=== PATIENT | female | born 1950 | race Caucasian/White ===

== ENCOUNTER 2017-09-01 23:27 | Observation (INO) ==
[2017-09-01 23:51] LABS: Basophils % 0.3 %; Eosinophils # 0.2 K/mcL (0.0-0.6); Eosinophils % 2.7 %; Hematocrit 32.9 % (35.3-44.9); Hemoglobin 10.9 g/dL (11.5-15.4); Immature Granulocytes % 0.1 % (0-4); Lymphocytes # 2.3 K/mcL (0.6-4.6); Lymphocytes % 31.8 %; Mean Corpuscular HGB Conc 33.1 g/dL (31.6-35.5); Mean Corpuscular Hemoglobin 31.5 pg (28.0-33.3); Mean Corpuscular Volume 95.1 fL (83.0-100.0); Mean Platelet Volume 11.7 fL (9.4-12.4); Monocytes # 0.6 K/mcL (0.0-1.3); Monocytes % 8.4 %; Neutrophils # 4.2 K/mcL (1.6-8.9); Platelet Count 189 K/mcL (140-400); Red Blood Count 3.46 M/mcL (3.82-4.97); Red Cell Distribution Width 12.6 % (11.5-14.5); Segmented Neutrophils % 56.7 %
--- NOTE | 2017-09-01 23:55 | Emergency Department Note ---
Disposition Clinical Impression: Chest pain Disposition: Admitted As Inpatient Chest Pain HPI - General Chief Complaint: ED Chest Pain Stated Complaint: back pain and head ache Time Seen by Provider: 09/01/17 23:30 Source: patient Mode of arrival: ambulatory Limitations: no limitations Vital Signs Reviewed: Yes Nursing Notes Reviewed: Yes - History of Present Illness HPI Narrative: Patient went home after leaving the hospital AGAINST MEDICAL ADVICE earlier today started having additional chest pain and upper back pain. She took a nitroglycerin for this and developed a headache so they came to the emergency department for evaluation. She had no shortness of breath nausea vomiting or any other complaints of the chest discomfort that did get better with nitroglycerin. Onset (ago): Just [employer] Duration: intermittent Onset: during rest Pain Location: substernal, left chest Severity: moderate Severity scale (1-10): 7 Quality: aching, heaviness Pain Radiation: LUE Improves with: nitroglycerin Worsens with: nothing Associated symptoms: Denies: nausea, vomiting, diaphoresis, dyspnea - Related Data Home Medications Medication Instructions Recorded Confirmed Atorvastatin [Lipitor] 80 mg PO HS 03/23/15 09/01/17 BuPROPion XL (24 HR) [Wellbutrin 300 mg PO DAILY 03/23/15 09/01/17 Xl] ClonazePAM [Klonopin] 1 mg PO BID 03/23/15 09/01/17 Clopidogrel [Plavix] 75 mg PO DAILY 03/23/15 09/01/17 Lisinopril [Zestril] 40 mg PO DAILY 03/23/15 09/01/17 Loratadine [Claritin] 10 mg PO DAILY 03/23/15 09/01/17 Multivitamin [Multi-Day Vitamins] 1 each PO QAM 03/23/15 09/01/17 Omega3/Dha/Epa/Fish Oil/Vit D3 1 each PO QAM 03/23/15 09/01/17 [Fish Oil + Vitamin D-3 Softgel] Ranitidine HCl [Zantac] 150 mg PO BID 03/23/15 09/01/17 TraZODone 100 mg PO HS 03/23/15 09/01/17 Vilazodone HCl [Viibryd] 40 mg PO HS 03/23/15 09/01/17 Albuterol Sulfate [Albuterol 2 puff IH Q4H PRN 04/13/16 09/01/17 Inhaler] Cholecalciferol (Vitamin D3) 2,000 unit PO DAILY 04/13/16 09/01/17 [Vitamin D3] Levothyroxine [Synthroid] 175 mcg PO DAILY 04/13/16 09/01/17 Nitroglycerin [Nitrostat] 0.4 mg PO Q5M PRN 04/13/16 09/01/17 Potassium Chloride [Klor-Con] 20 meq PO BID 04/13/16 09/01/17 Tiotropium [place] [Spiriva] 1 puff IH DAILY 04/13/16 09/01/17 Glimepiride [Amaryl] 2 mg PO 0800 10/29/16 09/01/17 Metoprolol [Lopressor] 25 mg PO BID 09/01/17 09/01/17 Previous Rx's Medication Instructions Recorded hydrALAZINE [HydrALAZINE] 50 mg PO Q8HR tablet 06/05/15 Isosorbide MONOnitrate (24 HR) 120 mg PO DAILY #30 tab.er.24h 07/27/15 [Imdur] Furosemide [Lasix] 80 mg PO DAILY #60 tablet 09/05/15 Warfarin [Coumadin] 2.5 mg PO 1800 #30 tablet 10/30/16 Allergies Allergy/AdvReac Type Severity Reaction Status Date / Time No Known Allergies Allergy Verified 04/13/16 07:37 All systems ED: reviewed and negative except as stated. Review of Systems: As Per HPI Constitutional: Denies: fever, chills, weakness, weight change Eyes: Denies: eye pain, eye discharge, vision change ENT ED: Denies: ear pain, throat pain, dental pain, hearing loss, epistaxis, congestion, dysphagia Cardiovascular: Reports: as per HPI, chest pain. Denies: palpitations, dyspnea on exertion, edema, syncope Respiratory: Denies: cough, dyspnea, wheezes, hemoptysis, stridor Gastrointestinal: Denies: abdominal pain, nausea, vomiting, diarrhea, constipation, hematemesis, melena, hematochezia Genitourinary: Denies: dysuria, frequency, hematuria, discharge Musculoskeletal: Denies: back pain, neck pain, arthralgia, myalgia Integumentary: Denies: rash, abrasion, lesions Neurological: Denies: headache, weakness, numbness, paresthesias, confusion, abnormal gait, vertigo Psychiatric: Denies: anxiety, depression, suicidal thoughts, homicidal thoughts , auditory hallucinations, visual hallucinations Endocrine: Denies: fatigue Hematological/Lymphatic: Denies: easy bleeding, easy bruising Allergic/Immunologic: Denies: facial swelling, urticaria Chest Pain PMH - Past Medical History Medical history: Reports: atrial fibrillation, COPD, coronary artery disease, CVA, diabetes, hyperlipidemia, hypertension, renal disease, thyroid disease, other Surgical history: Reports: angioplasty/stent, cholecystectomy, other Psychiatric history: Reports: anxiety, depression Prior Cardiac Testing/Procedures: Stenting (Circumflex, March 2014) 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: Reports: bilateral tubal ligation - Social History Smoking Status: Never smoker Alcohol use: Reports: none Drug use: Reports: none Physical Exam - General Limitations: no limitations General appearance: alert - Head Head exam: atraumatic, normocephalic, normal inspection - Eye Eye exam: Present: normal appearance, PERRL, EOMI - ENT ENT exam: normal exam, normal oropharynx, mucous membranes moist - Neck Neck exam: Present: normal inspection, full ROM, trachea midline - Chest Chest inspection: Present: normal inspection, symmetric chest wall rise - Respiratory Respiratory exam: Present: normal lung sounds bilaterally - Cardiovascular Cardiovascular exam: Present: regular rate, normal rhythm, normal heart sounds - Abdominal Exam Abdominal exam: Present: soft, Non-Tender - Extremities Exam Extremities exam: Present: normal inspection - Back Exam Back exam: Present: normal inspection - Neurological Exam Neurological exam: Present: alert, oriented X3 - Psychiatric Psychiatric exam: Present: normal affect, normal mood - Skin Skin exam: Present: warm, dry, intact Course Vital Signs Temperature 98.1 F 09/01/17 23:29 Pulse Rate 70 09/01/17 23:29 Respiratory Rate 20 09/01/17 23:29 Blood Pressure 157/64 09/01/17 23:29 O2 Sat by Pulse Oximetry 96 09/01/17 23:29 Temperature 97.8 F 09/02/17 05:06 Pulse Rate 71 09/02/17 05:06 Respiratory Rate 15 09/02/17 05:06 Blood Pressure 121/68 09/02/17 05:06 O2 Sat by Pulse Oximetry 99 09/02/17 05:06 Oxygen Delivery Oxygen Delivery Room Air Chest Pain - MDM Narrative Medical decision making narrative: Your blood pressure was normal today so upon discharge please follow-up through primary care provider for recheck - Lab Data Lab results reviewed: Yes I reviewed the patient's lab results. Result diagrams: 09/01/17 23:44 09/01/17 23:44 Lab Results 09/01/17 09/01/17 09/01/17 Range/Units 00:10 23:44 23:44 WBC 7.4 (4.3-11.1) K/mcL RBC 3.46 L (3.82-4.97) M/mcL Hgb 10.9 L (11.5-15.4) g/dL Hct 32.9 L (35.3-44.9) % MCV 95.1 (83.0-100.0) fL MCH 31.5 (28.0-33.3) pg MCHC 33.1 (31.6-35.5) g/dL RDW 12.6 (11.5-14.5) % Plt Count 189 (140-400) K/mcL MPV 11.7 (9.4-12.4) fL Immature Gran % 0.1 (0-4) % Seg Neutrophils % 56.7 % Lymphocytes % 31.8 % Monocytes % 8.4 % Eosinophils % 2.7 % Basophils % 0.3 % Neutrophils # 4.2 (1.6-8.9) K/mcL Lymphocytes # 2.3 (0.6-4.6) K/mcL Monocytes # 0.6 (0.0-1.3) K/mcL Eosinophils # 0.2 (0.0-0.6) K/mcL Basophils # 0.0 (0.0-0.2) K/mcL PT 26.4 H (9.4-12.1) Seconds INR 2.4 Sodium 139 (136-145) mEq/L Potassium 3.6 (3.5-5.1) mEq/L Chloride 105 (98-107) mEq/L Carbon Dioxide 27 (23-29) mEq/L BUN 25 H (8-23) mg/dL Creatinine 1.81 H (0.60-1.20) mg/dL Est GFR ( Amer) 34 L (> 60) Est GFR (Non-Af Amer) 28 L (> 60) BUN/Creatinine Ratio 14 (6-26) Glucose 235 H (70-105) mg/dL Calculated Osmolality 300 (280-300) Calcium 8.6 (8.6-10.3) mg/dL Troponin I (< 0.04) ng/mL 09/01/17 Range/Units Unknown WBC (4.3-11.1) K/mcL RBC (3.82-4.97) M/mcL Hgb (11.5-15.4) g/dL Hct (35.3-44.9) % MCV (83.0-100.0) fL MCH (28.0-33.3) pg MCHC (31.6-35.5) g/dL RDW (11.5-14.5) % Plt Count (140-400) K/mcL MPV (9.4-12.4) fL Immature Gran % (0-4) % Seg Neutrophils % % Lymphocytes % % Monocytes % % Eosinophils % % Basophils % % Neutrophils # (1.6-8.9) K/mcL Lymphocytes # (0.6-4.6) K/mcL Monocytes # (0.0-1.3) K/mcL Eosinophils # (0.0-0.6) K/mcL Basophils # (0.0-0.2) K/mcL PT (9.4-12.1) Seconds INR Sodium (136-145) mEq/L Potassium (3.5-5.1) mEq/L Chloride (98-107) mEq/L Carbon Dioxide (23-29) mEq/L BUN (8-23) mg/dL Creatinine (0.60-1.20) mg/dL Est GFR ( Amer) (> 60) Est GFR (Non-Af Amer) (> 60) BUN/Creatinine Ratio (6-26) Glucose (70-105) mg/dL Calculated Osmolality (280-300) Calcium (8.6-10.3) mg/dL Troponin I < 0.03 (< 0.04) ng/mL - Radiology Data Radiology results reviewed: Yes I reviewed the patient's radiology results. - EKG Data EKG attestation: Yes I reviewed and interpreted this EKG. EKG results narrative: EKG shows sinus rhythm without acute ST or T-wave changes with a normal rate of 67 bpm KS interval 164 ms. QRS duration 102 ms. QT interval 412 QTC 428 ms R axis of 58 degrees. EKG shows normal: axis
[2017-09-02 00:09] LABS: Calcium 8.6 mg/dL (8.6-10.3); Potassium 3.6 mEq/L (3.5-5.1)
[2017-09-02 00:29] LABS: INR 2.4; Prothrombin Time 26.4 Seconds (9.4-12.1)
[2017-09-02] MEDS ORDERED: Nitroglycerin 1 INCH/GM PACKET TP STA (00:53)
[2017-09-02] MEDS ORDERED: Naloxone 0.4 MG/ML INJ IVP PRN (01:29)
[2017-09-02] MEDS ORDERED: Nitroglycerin 1 INCH/GM PACKET TP ONE (01:29)
[2017-09-02] MEDS ORDERED: 0.9 % Sodium Chloride 1,000 ML IVC SCH (01:29)
[2017-09-02] MEDS: hydrALAZINE 25 MG TABLET PO SCH ×3 (06:16→20:09)
[2017-09-02] MEDS ORDERED: Tiotropium 18 MCG inhalation IH SCH (09:00)
[2017-09-02] MEDS: BuPROPion XL (24 HR) 150 MG TABLET PO SCH (09:52)
[2017-09-02] MEDS: Isosorbide MONOnitrate (24 HR) 60 MG TAB.ER.24H PO SCH (09:53)
[2017-09-02] MEDS: Furosemide 40 MG TABLET PO SCH (09:53)
[2017-09-02] MEDS: clonazePAM 0.5 MG TABLET PO SCH ×2 (09:53→20:04)
[2017-09-02] MEDS: *HR* Glimepiride 2 MG TABLET PO SCH (09:53)
[2017-09-02] MEDS: Famotidine 20 MG TABLET PO SCH ×2 (09:53→16:42)
[2017-09-02] MEDS: Lisinopril 20 MG TABLET PO SCH (09:53)
--- NOTE | 2017-09-02 14:09 | Internal Med History&Physical ---
Date of Encounter: 09/02/17 Time of Encounter: 12:15 Assessment and Plan (1) Chest pain Current visit: Yes Status: Acute Repeat cardiac enzymes were ordered through emergency room. Qualifiers: Chest pain type: precordial pain Qualified Code(s): R07.2 - Precordial pain (2) Anemia Current visit: Yes Status: Acute Will order anemia testing in a.m. Qualifiers: Anemia type: unspecified type Qualified Code(s): D64.9 - Anemia, unspecified (3) Diabetes mellitus Current visit: No Status: Chronic Appears diet-controlled. Hemoglobin A1c was 5.9% on 01/15/2017. Qualifiers: Diabetes mellitus type: type 2 Diabetes mellitus intermediate insulin use: with intermediate use Diabetes mellitus complication status: with unspecified complications Qualified Code(s): E11.8 - Type 2 diabetes mellitus with unspecified complications; Z79.4 - [facility] (current) use of insulin (4) Hypertension Current visit: Yes Status: Acute Continue lisinopril, hydralazine, and metoprolol. Qualifiers: Hypertension type: essential hypertension Qualified Code(s): I10 - Essential (primary) hypertension (5) PAF (paroxysmal atrial fibrillation) Current visit: No Status: Chronic Continue Coumadin. Internal Medicine - H&P: HPI Chief complaint: Chest pain Admitted From: Emergency Dept Plans for Post Hospital Care: Home History of present illness: Ms. Win is a 66 year old female who came to emergency room a second time the day of admission complaining of discomfort in her chest. She reports the discomfort started approximately 5 PM while at leisure. She took a nitroglycerin pill without significant relief. She came to emergency room but did not wish to stay and left AMA. The pain returned again at home. She used an additional nitroglycerin pill and came back to emergency room. She reports she was given 3 nitroglycerin pills in emergency room with resolution of the pain. She was [facility] floor for ongoing care needs. She states her pain has remained resolved at this time. She reports previous similar pain approximately 2 weeks ago. Her cardiovascular history is significant for hypertension and known ASHD status post NSTEMI March 2014 followed by angioplasty and stent in the circumflex artery. She uses a rare nitroglycerin pill for angina. She reports dyspnea on exertion. She denies DVT or pulmonary embolus or heart failure. She had pharmacologic exercise stress test May 2015 which did not show evidence of ischemia. Her LVEF was greater than 70%. An echocardiogram 04/13/2016 showed LVEF of 65-70%. The interventricular septum and posterior wall thickness measurements were elevated 1.50 cm each. There was LAE at 4.50 cm. There was mild aortic sclerosis and elevated RVSP estimated at 50 mmHg. There was mild LV diastolic dysfunction. She had a pacemaker placed October 2016 for sick sinus syndrome. She has paroxysmal atrial fibrillation. Past Med Surg Social Fam HX - Past Medical History Medical history: atrial fibrillation, COPD, coronary artery disease, CVA, diabetes, hyperlipidemia, hypertension, renal disease, thyroid disease, other Additional medical history: DEPRESSION, KIDNEY PROBLEMS, FIBROIDS Psychiatric history: anxiety, depression - Past Surgical History Surgical History: angioplasty/stent, cholecystectomy, other Additional surgical history: TUBAL LIGATION, - Social History Smoking Status: Never smoker Smokeless Tobacco Status: No Alcohol use: none Drug use: none - Family History Brother Family Member Ethnicity: Non- Hx Family Endocrine Disorder: Yes (DM) Father Living Status: Hx Family Respiratory Disorders: Yes (Emphysema) Mother Living Status: Hx Family Cardiac Disorders: No Hx Family Respiratory Disorders: No Hx Family Cancer: No Internal Medicine - H&P: Meds Atorvastatin [Lipitor] 80 mg PO HS 03/23/15 [History] BuPROPion XL (24 HR) [Wellbutrin Xl] 300 mg PO DAILY 03/23/15 [History] ClonazePAM [Klonopin] 1 mg PO BID 03/23/15 [History] Clopidogrel [Plavix] 75 mg PO DAILY 03/23/15 [History] Lisinopril [Zestril] 40 mg PO DAILY 03/23/15 [History] Loratadine [Claritin] 10 mg PO DAILY 03/23/15 [History] Multivitamin [Multi-Day Vitamins] 1 each PO QAM 03/23/15 [History] Omega3/Dha/Epa/Fish Oil/Vit D3 [Fish Oil + Vitamin D-3 Softgel] 1 each PO QAM [History] Ranitidine HCl [Zantac] 150 mg PO BID 03/23/15 [History] TraZODone 100 mg PO HS 03/23/15 [History] Vilazodone HCl [Viibryd] 40 mg PO HS 03/23/15 [History] hydrALAZINE [HydrALAZINE] 50 mg PO Q8HR tablet 06/05/15 [Rx] Isosorbide MONOnitrate (24 HR) [Imdur] 120 mg PO DAILY #30 tab.er.24h 07/27/15 [ Rx] Furosemide [Lasix] 80 mg PO DAILY #60 tablet 09/05/15 [Rx] Albuterol Sulfate [Albuterol Inhaler] 2 puff IH Q4H PRN 04/13/16 [History] Cholecalciferol (Vitamin D3) [Vitamin D3] 2,000 unit PO DAILY 04/13/16 [History] Levothyroxine [Synthroid] 175 mcg PO DAILY 04/13/16 [History] Nitroglycerin [Nitrostat] 0.4 mg PO Q5M PRN 04/13/16 [History] Potassium Chloride [Klor-Con] 20 meq PO BID 04/13/16 [History] Tiotropium [place] [Spiriva] 1 puff IH DAILY 04/13/16 [History] Glimepiride [Amaryl] 2 mg PO 0800 10/29/16 [History] Warfarin [Coumadin] 2.5 mg PO 1800 #30 tablet 10/30/16 [Rx] Metoprolol [Lopressor] 25 mg PO BID 09/01/17 [History] 3 Allergy/AdvReac Type Severity Reaction Status Date / Time No Known Allergies Allergy Verified 04/13/16 07:37 All Systems PM: A 10-system review of systems was performed and is negative for pertinent findings except as documented above in the HPI. Review of systems: Gen.: Her weight has been stable since the July 2014 [facility] hospitalization with weight 133.81 kg on admission then and 137.438 kg now. Cardiovascular: As per history of present illness Respiratory: She is a lifelong nonsmoker. She had pulmonary function tests at [facility] 08/22/2015. She had normal FEV1/FVC ratio at 77%. Her FVC was significantly decreased at 54% however. Her total lung capacity was normal. There was elevated residual volume [156% ] and decrease in DLCO [62% corrected] . GI: She denies disorders with her liver or exocrine pancreas. He has had cholecystectomy : She has CKD stage III and follows with a [place] mineral technologist. She denies other kidney or bladder disorders Neurologic: She had acute hemorrhagic infarct in the left posterior MCA territory involving the left parietal and posterior temporal lobes as well as a small acute infarct in the left insular cortex with surrounding mass effect and edema in April 2016. She was transferred from [facility] to [facility] and was treated nonoperatively. She denies seizures. She uses a walker for ambulation at home. Endocrine: She was diagnosed with DM 2 in 2003. She has hyperlipidemia and hypothyroidism Hematology/oncology: She denies blood disorders cancers or anemia Psychiatric: She has anxiety and states she has another mental health diagnosis but is uncertain what it is. Musculoskeletal: She has DJD but no known gout or osteoporosis - Constitutional Vitals: Temp Pulse Resp BP Pulse Ox 98 F 100 17 141/67 100 09/02/17 10:09/02/17 10:09/02/17 10:09/02/17 10:09/02/17 09:37 Exam: Gen.: She is a well-developed obese female lying in bed who appears in no acute distress. She denies pain at the present time. HEENT: Head is atraumatic and normocephalic. Eyes: EOMI. There is no scleral icterus. Mouth: Mucosa is moist. Neck: Supple and nontender. There is no thyromegaly or adenopathy noted. Heart: Regular without murmurs gallops or ectopics Lungs: No wheezes or crackles are heard. Abdomen: She has a large abdomen. It is nontender to palpation. Chest: She is tender in her chest wall to sternal compression stating "that is the pain". Extremities: There is no cyanosis edema or clubbing noted. Dorsalis pedis posterior tibial pulses are trace to 1+ palpable bilaterally. Neurologic: Mental status: She is talkative and seems to be a reliable historian. Her speech is slightly slow. Cranial nerves: Smile is symmetric. Forehead wrinkles bilaterally. Tongue protrudes midline. EOMI. Motor: There is no pronator drift. Cerebellar: Finger to nose is intact bilaterally. Skin: Warm and dry Internal Med - H&P Results - Labs CBC & Chem 7: 09/01/17 23:44 09/01/17 23:44 Labs: Cardiac Enzymes 09/02/17 Range/Units 07:13 Troponin I < 0.03 (< 0.04) ng/mL - Impressions ITS Impressions Head CT 09/02/17 23:37 IMPRESSION: No acute intracranial abnormality. Remote left frontal lobe infarct. D/ / 09/02/2017 07:12:16 Jesse Jackson MD / trae Interpreting Provider: Jesse Jackson MD
[2017-09-02] MEDS ORDERED: *HR* Warfarin 5 MG TABLET PO SCH (18:00)
[2017-09-02] MEDS ORDERED: Vilazodone Hcl [Viibryd] 40 MG PO SCH (21:00)
[2017-09-02] MEDS ORDERED: traZODone 50 MG TABLET PO SCH (21:00)
[2017-09-03] MEDS: hydrALAZINE 25 MG TABLET PO SCH (06:24)
[2017-09-03] MEDS: Famotidine 20 MG TABLET PO SCH (06:24)
[2017-09-03 07:06] VITALS: BP 157/70
[2017-09-03 08:12] LABS: Prothrombin Time 25.4 Seconds (9.4-12.1)
[2017-09-03 08:49] LABS: INR 2.3
[2017-09-03] MEDS: Lisinopril 20 MG TABLET PO SCH (09:06)
[2017-09-03] MEDS: Furosemide 40 MG TABLET PO SCH (09:06)
[2017-09-03] MEDS: BuPROPion XL (24 HR) 150 MG TABLET PO SCH (09:07)
[2017-09-03] MEDS: Isosorbide MONOnitrate (24 HR) 60 MG TAB.ER.24H PO SCH (09:07)
[2017-09-03] MEDS: *HR* Glimepiride 2 MG TABLET PO SCH (09:07)
[2017-09-03] MEDS: clonazePAM 0.5 MG TABLET PO SCH (09:07)
[2017-09-03] MEDS ORDERED: Tiotropium 18 MCG inhalation IH SCH (10:00)
--- NOTE | 2017-09-03 10:11 | Discharge Summary ---
Date of Encounter: 09/03/17 Time of Encounter: 10:04 - Discharge Diagnosis (1) Chest pain Priority: Primary Status: Resolved Qualifiers: Chest pain type: precordial pain Qualified Code(s): R07.2 - Precordial pain (2) Anemia Priority: Secondary Status: Acute Qualifiers: Anemia type: unspecified type Qualified Code(s): D64.9 - Anemia, unspecified (3) Diabetes mellitus Priority: Secondary Status: Chronic Qualifiers: Diabetes mellitus type: type 2 Diabetes mellitus oysterman insulin use: with intermediate use Diabetes mellitus complication status: with unspecified complications Qualified Code(s): E11.8 - Type 2 diabetes mellitus with unspecified complications; Z79.4 - oysterman (current) use of insulin (4) Hypertension Priority: Secondary Status: Chronic Qualifiers: Hypertension type: essential hypertension Qualified Code(s): I10 - Essential (primary) hypertension (5) PAF (paroxysmal atrial fibrillation) Priority: Secondary Status: Chronic Hospital course: Ms. Win is a 66 year old female who came to emergency room a second time the day of admission complaining of discomfort in her chest. She reports the discomfort started approximately 5 PM while at leisure. She took a nitroglycerin pill without significant relief. She came to emergency room but did not wish to stay and left AMA. The pain returned again at home. She used an additional nitroglycerin pill and came back to emergency room. She reports she was given 3 nitroglycerin pills in emergency room with resolution of the pain. She was admitted to [facility] for ongoing care needs. Initial orders were written by the emergency room physician. I saw her on September 02 and performed a history and physical. Repeat cardiac enzymes showed no evidence of myocardial damage. The etiology was not determined with certainty but I felt she possibly had chest wall origin since the pain was somewhat reproduced by sternal compression. When I saw her on September 03 she was pain-free and wished to be discharged which I felt was reasonable. She will follow with her PCP Dr. Jacob Haq within 1 week. - Time Spent with Patient Total time spent providing and/or coordinating discharge services: - Discharge Medications Home Medications: Atorvastatin [Lipitor] 80 mg PO HS 03/23/15 [History] BuPROPion XL (24 HR) [Wellbutrin Xl] 300 mg PO DAILY 03/23/15 [History] ClonazePAM [Klonopin] 1 mg PO BID 03/23/15 [History] Clopidogrel [Plavix] 75 mg PO DAILY 03/23/15 [History] Lisinopril [Zestril] 40 mg PO DAILY 03/23/15 [History] Loratadine [Claritin] 10 mg PO DAILY 03/23/15 [History] Multivitamin [Multi-Day Vitamins] 1 each PO QAM 03/23/15 [History] Omega3/Dha/Epa/Fish Oil/Vit D3 [Fish Oil + Vitamin D-3 Softgel] 1 each PO QAM [History] Ranitidine HCl [Zantac] 150 mg PO BID 03/23/15 [History] TraZODone 100 mg PO HS 03/23/15 [History] Vilazodone HCl [Viibryd] 40 mg PO HS 03/23/15 [History] hydrALAZINE [HydrALAZINE] 50 mg PO Q8HR tablet 06/05/15 [Rx] Isosorbide MONOnitrate (24 HR) [Imdur] 120 mg PO DAILY #30 tab.er.24h 07/27/15 [ Rx] Furosemide [Lasix] 80 mg PO DAILY #60 tablet 09/05/15 [Rx] Albuterol Sulfate [Albuterol Inhaler] 2 puff IH Q4H PRN 04/13/16 [History] Cholecalciferol (Vitamin D3) [Vitamin D3] 2,000 unit PO DAILY 04/13/16 [History] Levothyroxine [Synthroid] 175 mcg PO DAILY 04/13/16 [History] Nitroglycerin [Nitrostat] 0.4 mg PO Q5M PRN 04/13/16 [History] Potassium Chloride [Klor-Con] 20 meq PO BID 04/13/16 [History] Tiotropium [place] [Spiriva] 1 puff IH DAILY 04/13/16 [History] Glimepiride [Amaryl] 2 mg PO 0800 10/29/16 [History] Warfarin [Coumadin] 2.5 mg PO 1800 #30 tablet 10/30/16 [Rx] Metoprolol [Lopressor] 25 mg PO BID 09/01/17 [History] Allergies/Adverse Reactions: 3 Allergy/AdvReac Type Severity Reaction Status Date / Time No Known Allergies Allergy Verified 04/13/16 07:37 Date of admission: 09/02/17 01:21 Primary care physician: Jacob Haq MD - Constitutional Vitals: Temp Pulse Resp BP Pulse Ox 97.9 F 61 12 157/70 98 09/03/17 07:04 09/03/17 07:04 09/03/17 09:12 09/03/17 07:04 09/03/17 09:12 - Patient Status Disposition: Home, Self-Care Overall status at discharge: patient is progressing back to baseline - Discharge Instructions Follow Up With: Jacob Haq MD [Primary Care Provider] - 1 week - Diet and Activity Activity: resume usual activities as tolerated Diet: advance to your usual diet
--- NOTE | 2017-09-05 10:45 | Electrocardiograph Report ---
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
== END 2017-09-03 11:54 | disposition home or self-care (01) ==
LOC: EMEROOPIK 23:27 → INPPIK 23:27
PROVIDERS: ADMIT Internal Medicine; ATTEND Internal Medicine

== ENCOUNTER 2021-10-09 06:00 | Inpatient (IN) ==
[2021-10-09 07:04] LABS: Bilirubin,Urine Negative (Negative); Blood,Urine Negative (Negative); Clarity,Urine Slightly Cloudy (Clear); Color,Urine Yellow (Yellow); Glucose,Urine (UA) Normal (Normal); Ketones,Urine Negative (Negative); Leukocyte Esterase,Urine Small (Negative); Nitrite,Urine Positive (Negative); PH,Urine 5.5 pH Units (5.0-8.0); Protein,Urine 30 mg/dL (Neg-Trace); Specific Gravity,Urine 1.025 (1.010-1.025); Urobilinogen,Urine Normal (Normal)
[2021-10-09] MEDS ORDERED: Doxycycline 100 MG in 0.9 % Sodium Chloride Mini Bag 100 ML IVPB ONE (07:04)
[2021-10-09] MEDS ORDERED: cefTRIAXone 1,000 MG in 0.9 % Sodium Chloride Mini Bag 100 ML IVPB ONE (07:04)
[2021-10-09 07:22] LABS: Basophils % 0.2 %; Eosinophils # 0.3 K/mcL (0.0-0.6); Eosinophils % 5.9 %; Hematocrit 28.7 % (35.3-44.9); Hemoglobin 8.4 g/dL (11.5-15.4); Immature Granulocytes % 0.4 % (0-4); Lymphocytes # 1.2 K/mcL (0.6-4.6); Lymphocytes % 23.3 %; Mean Corpuscular HGB Conc 29.3 g/dL (31.6-35.5); Mean Corpuscular Hemoglobin 26.1 pg (28.0-33.3); Mean Corpuscular Volume 89.1 fL (83.0-100.0); Mean Platelet Volume 10.2 fL (9.4-12.4); Monocytes # 0.6 K/mcL (0.0-1.3); Monocytes % 10.8 %; Neutrophils # 3.1 K/mcL (1.6-8.9); Platelet Count 203 K/mcL (140-400); Red Blood Count 3.22 M/mcL (3.82-4.97); Red Cell Distribution Width 16.9 % (11.5-14.5); Segmented Neutrophils % 59.4 %; White Blood Count 5.3 K/mcL (4.3-11.1)
[2021-10-09 07:27] LABS: INR 2.3; Prothrombin Time 25.6 Seconds (9.4-12.1)
[2021-10-09 07:29] LABS: Activated Partial Thrombo Time 38.9 Seconds (26.0-36.0)
[2021-10-09 07:33] LABS: Bacteria,Urine Many per hpf (None-Few); Squamous Epithelial Cell,Urine Few per hpf (None-Few); WBC,Urine 30-50 per hpf (0-3)
[2021-10-09 07:35] LABS: Alanine Aminotransferase 7 Units/L (7-52); Albumin 3.2 g/dL (3.5-5.7); Albumin/Globulin Ratio 0.8 (1.1-2.2); Alkaline Phosphatase 88 Units/L (34-104); BUN/Creatinine Ratio 6 (6-26); Bilirubin,Direct 0.1 mg/dL (0.0-0.2); Bilirubin,Indirect 0.3 mg/dL (0.0-1.0); Bilirubin,Total 0.4 mg/dL (0.3-1.0); Blood Urea Nitrogen 11 mg/dL (8-23); Calcium 8.9 mg/dL (8.6-10.3); Carbon Dioxide 31 mEq/L (23-29); Chloride 105 mEq/L (98-107); Globulin 3.9 g/dL (2.4-3.5); Glucose 177 mg/dL (70-105); Osmolality,Calculated 298 (280-300); Potassium 3.9 mEq/L (3.5-5.1); Sodium 142 mEq/L (136-145); Total Protein 7.1 g/dL (6.4-8.9); eGFR For African Americans 36 (> 60); eGFR For Non-African Americans 29 (> 60)
[2021-10-09 07:37] LABS: Troponin I < 0.03 ng/mL (< 0.04)
[2021-10-09] MEDS ORDERED: Ondansetron 4 MG/2 ML VIAL IVP PRN (08:24)
[2021-10-09] MEDS ORDERED: Naloxone 0.4 MG/ML INJ IVP PRN (08:24)
[2021-10-09] MEDS ORDERED: Acetaminophen 325 MG TABLET PO PRN (08:24)
[2021-10-09 08:34] LABS: Aspartate Amino Transferase 10 Units/L (13-39)
[2021-10-09] MEDS ORDERED: POTASSIUM CHLORIDE 20 MEQ PO SCH (11:15)
[2021-10-09] MEDS ORDERED: clonazePAM 0.5 MG TABLET PO PRN (11:29)
[2021-10-09] MEDS: BuPROPion XL (24 HR) 150 MG TABLET PO SCH (12:12)
[2021-10-09] MEDS: lisinopriL 20 MG TABLET PO SCH (12:13)
[2021-10-09] MEDS: Isosorbide MONOnitrate (24 HR) 60 MG TAB.ER.24H PO SCH (12:13)
[2021-10-09] MEDS: Loratadine 10 MG TABLET PO SCH (12:13)
[2021-10-09] MEDS: Cholecalciferol (D-3) 1,000 UNIT (25MCG) TABLET PO SCH (12:13)
[2021-10-09] MEDS: carvediloL 25 MG TABLET PO SCH ×2 (12:14→17:05)
[2021-10-09] MEDS: Famotidine 20 MG TABLET PO SCH ×2 (12:14→21:52)
[2021-10-09] MEDS ORDERED: *HR* Dextrose 50 % in Water (Syg) 50 ML SYRINGE IVP PRN (14:10)
[2021-10-09] MEDS ORDERED: Dextrose Gel 15 GM/37.5 ML TUBE PO PRN ×2 (14:10)
[2021-10-09] MEDS ORDERED: D5% in Water 1,000 ML IVC PRN (14:10)
[2021-10-09] MEDS ORDERED: Perflutren Lipid Microsphere 1.3 ML in 0.9 % Sodium Chloride 8.7 ML IVP PRN (14:22)
[2021-10-09] MEDS: Ipratropium/Albuterol Neb 3 ML IH SCH ×2 (15:08→19:47)
[2021-10-09 16:31] LABS: Estimated Average Glucose 143 mg/dl; Hemoglobin A1C 6.6 %
[2021-10-09] MEDS: Furosemide 40 MG/4 ML VIAL IVP SCH (17:04)
[2021-10-09] MEDS: Insulin LISPRO 300 UNITS/3 ML VIAL SUBQ SCH ×2 (17:05→21:52)
[2021-10-09] MEDS: Doxycycline 100 MG in 0.9 % Sodium Chloride Mini Bag 100 ML IVPB SCH (17:45)
[2021-10-09] MEDS ORDERED: *HR* Warfarin 2 MG TABLET PO ONE (18:00)
[2021-10-09] MEDS ORDERED: Warfarin perPT PO PRN (18:00)
[2021-10-09] MEDS: Budesonide/Formoterol 160/4.5 1 PUFF INH IH SCH (19:47)
[2021-10-09] MEDS: Insulin DETEMIR 100 UNIT/ML X5UNITS SUBQ SCH (21:52)
[2021-10-09] MEDS: traZODone 50 MG TABLET PO SCH (21:52)
[2021-10-09] MEDS: (Vilazodone Hcl [Viibryd] 40 MG Tablet) PO SCH (21:53)
[2021-10-10] MEDS: Ipratropium/Albuterol Neb 3 ML IH SCH ×6 (00:19→19:53)
[2021-10-10] MEDS: Doxycycline 100 MG in 0.9 % Sodium Chloride Mini Bag 100 ML IVPB SCH ×2 (05:18→18:18)
[2021-10-10 06:55] LABS: Basophils % 0.3 %; Eosinophils # 0.4 K/mcL (0.0-0.6); Eosinophils % 5.8 %; Hematocrit 27.8 % (35.3-44.9); Hemoglobin 8.1 g/dL (11.5-15.4); Immature Granulocytes % 0.3 % (0-4); Lymphocytes # 1.2 K/mcL (0.6-4.6); Lymphocytes % 18.7 %; Mean Corpuscular HGB Conc 29.1 g/dL (31.6-35.5); Mean Corpuscular Hemoglobin 26.1 pg (28.0-33.3); Mean Corpuscular Volume 89.7 fL (83.0-100.0); Mean Platelet Volume 10.7 fL (9.4-12.4); Monocytes # 0.7 K/mcL (0.0-1.3); Monocytes % 10.7 %; Platelet Count 231 K/mcL (140-400); Red Cell Distribution Width 16.9 % (11.5-14.5); Segmented Neutrophils % 64.2 %; White Blood Count 6.3 K/mcL (4.3-11.1)
[2021-10-10 07:04] LABS: INR 2.6
[2021-10-10 07:10] LABS: Calcium 8.9 mg/dL (8.6-10.3); Magnesium 1.7 mg/dL (1.6-2.6); Potassium 3.9 mEq/L (3.5-5.1)
[2021-10-10] MEDS: Budesonide/Formoterol 160/4.5 1 PUFF INH IH SCH ×2 (07:41→19:54)
[2021-10-10] MEDS: Insulin LISPRO 300 UNITS/3 ML VIAL SUBQ SCH ×4 (07:45→21:35)
[2021-10-10] MEDS: carvediloL 25 MG TABLET PO SCH ×2 (08:46→18:15)
[2021-10-10] MEDS: Isosorbide MONOnitrate (24 HR) 60 MG TAB.ER.24H PO SCH (08:46)
[2021-10-10] MEDS: BuPROPion XL (24 HR) 150 MG TABLET PO SCH (08:46)
[2021-10-10] MEDS: Loratadine 10 MG TABLET PO SCH (08:47)
[2021-10-10] MEDS: lisinopriL 20 MG TABLET PO SCH (08:47)
[2021-10-10] MEDS: cefTRIAXone 1,000 MG in 0.9 % Sodium Chloride 10 ML IVP SCH (08:47)
[2021-10-10] MEDS: Famotidine 20 MG TABLET PO SCH ×2 (08:47→21:34)
[2021-10-10] MEDS: Cholecalciferol (D-3) 1,000 UNIT (25MCG) TABLET PO SCH (08:47)
[2021-10-10] MEDS: Multivit/Ca/Min/Fe/FA 1 TAB TABLET PO SCH (08:47)
[2021-10-10] MEDS: VIT D3 PO SCH (08:48)
[2021-10-10] MEDS: Insulin DETEMIR 100 UNIT/ML X5UNITS SUBQ SCH ×2 (08:48→21:34)
[2021-10-10] MEDS: EPA PO SCH (08:48)
[2021-10-10] MEDS: OMEGA3 PO SCH (08:48)
[2021-10-10] MEDS: DHA PO SCH (08:48)
[2021-10-10] MEDS: FISH OIL PO SCH (08:48)
[2021-10-10] MEDS: Furosemide 40 MG/4 ML VIAL IVP SCH ×2 (09:11→18:16)
[2021-10-10] MEDS ORDERED: Tiotropium 10 INH DOSE IH SCH (10:00)
[2021-10-10] MEDS ORDERED: *HR* Warfarin 1 MG TABLET PO ONE (18:00)
[2021-10-10] MEDS: traZODone 50 MG TABLET PO SCH (21:34)
[2021-10-10] MEDS: (Vilazodone Hcl [Viibryd] 40 MG Tablet) PO SCH (21:35)
[2021-10-11] MEDS: Ipratropium/Albuterol Neb 3 ML IH SCH ×3 (00:32→08:44)
[2021-10-11] MEDS: Doxycycline 100 MG in 0.9 % Sodium Chloride Mini Bag 100 ML IVPB SCH ×2 (05:35→17:35)
[2021-10-11] MEDS: Budesonide/Formoterol 160/4.5 1 PUFF INH IH SCH ×2 (08:44→21:26)
[2021-10-11] MEDS: cefTRIAXone 1,000 MG in 0.9 % Sodium Chloride 10 ML IVP SCH (08:48)
[2021-10-11] MEDS: BuPROPion XL (24 HR) 150 MG TABLET PO SCH (08:49)
[2021-10-11] MEDS: Multivit/Ca/Min/Fe/FA 1 TAB TABLET PO SCH (08:49)
[2021-10-11] MEDS: carvediloL 25 MG TABLET PO SCH ×2 (08:49→17:34)
[2021-10-11] MEDS: Furosemide 40 MG/4 ML VIAL IVP SCH (08:49)
[2021-10-11 08:50] LABS: INR 2.5; Prothrombin Time 28.1 Seconds (9.4-12.1)
[2021-10-11] MEDS: Loratadine 10 MG TABLET PO SCH (08:50)
[2021-10-11] MEDS: Famotidine 20 MG TABLET PO SCH ×2 (08:50→21:00)
[2021-10-11] MEDS: Isosorbide MONOnitrate (24 HR) 60 MG TAB.ER.24H PO SCH (08:50)
[2021-10-11] MEDS: Cholecalciferol (D-3) 1,000 UNIT (25MCG) TABLET PO SCH (08:50)
[2021-10-11] MEDS: lisinopriL 20 MG TABLET PO SCH (08:50)
[2021-10-11] MEDS: Insulin DETEMIR 100 UNIT/ML X5UNITS SUBQ SCH ×2 (10:34→21:01)
[2021-10-11] MEDS: Insulin LISPRO 300 UNITS/3 ML VIAL SUBQ SCH ×4 (10:34→21:00)
[2021-10-11] MEDS: EPA PO SCH (10:35)
[2021-10-11] MEDS: DHA PO SCH (10:35)
[2021-10-11] MEDS: OMEGA3 PO SCH (10:35)
[2021-10-11] MEDS: VIT D3 PO SCH (10:35)
[2021-10-11] MEDS: FISH OIL PO SCH (10:35)
[2021-10-11] MEDS: Furosemide 40 MG TABLET PO SCH (17:34)
[2021-10-11] MEDS ORDERED: *HR* Warfarin 0.5 MG TABLET PO ONE (18:00)
[2021-10-11] MEDS: hydrALAZINE 25 MG TABLET PO SCH (21:00)
[2021-10-11] MEDS: traZODone 50 MG TABLET PO SCH (21:00)
[2021-10-11] MEDS: (Vilazodone Hcl [Viibryd] 40 MG Tablet) PO SCH (21:00)
[2021-10-12] MEDS: Doxycycline 100 MG in 0.9 % Sodium Chloride Mini Bag 100 ML IVPB SCH (05:34)
[2021-10-12 06:40] VITALS: BP 155/68; PULSE 73; TEMP 98.2; O2SAT 96
[2021-10-12 07:28] LABS: Basophils % 0.2 %; Eosinophils # 0.3 K/mcL (0.0-0.6); Hematocrit 27.2 % (35.3-44.9); Hemoglobin 8.1 g/dL (11.5-15.4); Immature Granulocytes % 0.2 % (0-4); Lymphocytes # 1.6 K/mcL (0.6-4.6); Lymphocytes % 25.8 %; Mean Corpuscular HGB Conc 29.8 g/dL (31.6-35.5); Mean Corpuscular Hemoglobin 25.8 pg (28.0-33.3); Mean Corpuscular Volume 86.6 fL (83.0-100.0); Mean Platelet Volume 10.6 fL (9.4-12.4); Monocytes # 0.7 K/mcL (0.0-1.3); Monocytes % 10.7 %; Neutrophils # 3.7 K/mcL (1.6-8.9); Platelet Count 213 K/mcL (140-400); Red Blood Count 3.14 M/mcL (3.82-4.97); Red Cell Distribution Width 17.4 % (11.5-14.5); Segmented Neutrophils % 59.1 %; White Blood Count 6.3 K/mcL (4.3-11.1)
[2021-10-12 07:36] LABS: INR 1.8; Prothrombin Time 19.9 Seconds (9.4-12.1)
[2021-10-12 08:27] LABS: Calcium 8.7 mg/dL (8.6-10.3); Potassium 3.3 mEq/L (3.5-5.1)
[2021-10-12] MEDS: Budesonide/Formoterol 160/4.5 1 PUFF INH IH SCH (08:57)
[2021-10-12 09:00] VITALS: RESP 18
[2021-10-12] MEDS ORDERED: amLODIPine 5 MG TABLET PO SCH (09:00)
[2021-10-12] MEDS: Isosorbide MONOnitrate (24 HR) 60 MG TAB.ER.24H PO SCH (09:23)
[2021-10-12] MEDS: carvediloL 25 MG TABLET PO SCH (09:23)
[2021-10-12] MEDS: cefTRIAXone 1,000 MG in 0.9 % Sodium Chloride 10 ML IVP SCH (09:23)
[2021-10-12] MEDS: hydrALAZINE 25 MG TABLET PO SCH (09:23)
[2021-10-12] MEDS: Famotidine 20 MG TABLET PO SCH (09:24)
[2021-10-12] MEDS: Loratadine 10 MG TABLET PO SCH (09:24)
[2021-10-12] MEDS: Multivit/Ca/Min/Fe/FA 1 TAB TABLET PO SCH (09:24)
[2021-10-12] MEDS: Insulin LISPRO 300 UNITS/3 ML VIAL SUBQ SCH ×2 (09:24→13:29)
[2021-10-12] MEDS: BuPROPion XL (24 HR) 150 MG TABLET PO SCH (09:24)
[2021-10-12] MEDS: Cholecalciferol (D-3) 1,000 UNIT (25MCG) TABLET PO SCH (09:24)
[2021-10-12] MEDS: Furosemide 40 MG TABLET PO SCH (09:24)
[2021-10-12] MEDS: Insulin DETEMIR 100 UNIT/ML X5UNITS SUBQ SCH (09:25)
[2021-10-12] MEDS ORDERED: *HR* Warfarin 2 MG TABLET PO ONE (18:00)
== END 2021-10-12 16:05 | disposition home health service (06) | DRG 139 ==
LOC: EMEROOPIK 06:00 → INPPIK 08:22
PROVIDERS: ADMIT Family Medicine; ATTEND Family Medicine